=== PATIENT | female | born 1965 | race African-American/Black ===

== ENCOUNTER 2018-12-29 09:33 | Emergency (ER) | payer BC, OTHER ==
--- NOTE | 2018-12-29 09:37 | PDOC ---
History of Present Illness - General Chief Complaint: Lightheaded Stated Complaint: DIZZY, NAUSEATED Time Seen by Provider: 12/29/18 09:36 History Source: Patient Exam Limitations: No Limitations - History of Present Illness Initial Comments: 12/29/18 09:37 53 YOF with h/o hypothyroidism, HTN presenting with episodes of generalized weakness, dizziness, nausea, flushing and difficulty catching her breath intermittently since 12AM last night. she was in usual state of health, ate a dinner of chicken and peas. she went to bed but woke up at 12AM feeling flushed and hot, and inability to catch her breath and +palpitations. she went back to sleep but woke up several times in the night with continued feelings of nausea, dizziness/lightheadedness. she placed a cool wet towel on her chest with improvement. she also made a normal BM after one of the episodes, with some improvement. last episode of symptoms was at 9AM this morning, also experiencing NBNB emesis and nausea, where she threw up her food from last night. currently she states she just feels "weak all over." she also endorses LLE muscle and calf pain, described as aches; no alleviating or exacerbating factors went to PMD yesterday, seen and evaluated and given reassurance. Denies fever, chills, chest pain, SOB, cough or congestion, diarrhea or constipation, abdominal pain, bladder and bowel problems, leg swelling, No sick contacts or travel. no h/o immobilization or surgeries or OCP use. No new changes in medications. No suspicious food intake Allergies: shrimp Past Medical History: as documented in EMR/HPI Social history: Lives with family. No tobacco, ETOH or drug use. Surgical history: C sections Meds: as documented in EMR Family history: no h/o sudden PA or CAD, no h/o DVT/PE PMD: Dr Estrada 12/29/18 09:38 12/29/18 09:52 12/29/18 09:57 Past History - Past Medical History Allergies/Adverse Reactions: Allergies Allergy/AdvReac Type Severity Reaction Status Date / Time shrimp Allergy Intermediate Difficulty Verified 12/29/18 09:37 Breathing Home Medications: Ambulatory Orders Ergocalciferol (Vitamin D2) [Vitamin D2] 50 mcg PO SA 12/29/18 Hydrochlorothiazide [Hctz -] 12.5 mg PO DAILY 12/29/18 Metoprolol Tartrate 100 mg PO DAILY 12/29/18 Potassium Chloride [K-Dur -] 10 meq PO DAILY 12/29/18 Review of Systems - Review of Systems Able to Perform ROS?: Yes Comments:: 12/29/18 09:38 Review of systems Constitutional: no fevers or chills. +general weakness HEENT: +dizziness, no headache. No congestion. No visual/hearing disturbances. no sore throat CVS: no cp or syncope. +palpitations. Resp: no sob. No cough. Gastrointestinal: no abdominal pain, + nausea +vomiting. no diarrhea or constipation. Genitourinary: no urinary sx, hematuria. no urgency or frequency. MUSCULOSKELETAL: No joint pain and swelling. No neck or back pain. +calf and muscle pain in LLE. SKIN: no redness or skin changes, no discharge, no rash. No wounds. Hematologic: no easy bruising/bleeding. NEUROLOGIC: No headache, dizziness, LOC or altered mental status. No focal weakness, numbness or tingling. Psych: no anxiety or depression Allergic/Immunologic: shrimp allergies All other systems reviewed and negative, or as documented in HPI. 12/29/18 09:56 12/29/18 09:57 *Physical Exam - Physical Exam Comments: 12/29/18 09:38 General: Well appearing, awake and alert, NAD. HEENT: NCAT, PERRL, EOMI, clear conjunctiva, anicteric, moist mucus membranes, clear oropharynx, no oral lesions.. Neck: neck supple, FROM Resp: CTAB, normal and even respirations, no respiratory distress CVS: RRR, no murmurs, 2+ peripheral pulses throughout, no peripheral edema Abdomen: soft, NTND, no rebound or guarding. No CVAT. Back: nontender, normal inspection and ROM MSK: no edema, CARDENAS x4, ROM intact. No clubbing or cyanosis. normal bulk and tone. Extremities: +left thigh and calf tenderness Neuro: alert, oriented appropriately; no focal neurologic deficits, 5/5 prox and distal strength all throughout. SILT in all extrem. speech clear. gait stable. no ataxia. Psych: Calm and cooperative Skin: warm and well perfused, cap refill <2 sec, normal color 12/29/18 09:58 Heart Score/ECG Review #1 ECG reviewed & interpreted by me at: 10:45 General ECG Interpretation: Sinus Rhythm, Normal Rate, Normal Intervals 12/29/18 11:18 EKG normal sinus rhythm at 77 bpm, no interval abnormalities, narrow QRS, ST and T wave segments and morphology normal. Nonspecific T wave flattening in III only 12/29/18 11:18 ED Treatment Course - LABORATORY CBC & Chemistry Diagram: 12/29/18 10:10 12/29/18 10:10 Medical Decision Making - Medical Decision Making 12/29/18 09:59 See HPI for details. Prior notes reviewed, including admissions, discharges and consultations. Vital signs reviewed, +tachy Vital Signs Temp Pulse Resp BP Pulse Ox 99.1 F 104 H 20 138/85 100 12/29/18 09:42 12/29/18 09:42 12/29/18 09:42 12/29/18 09:42 12/29/18 09:42 DDx : ACS, coronary vasospasm, NSTEMI, arrhythmia, unstable angina, PE, dissection, anemia, electrolyte/metabolic derangements, GERD, PUD, esophageal spasm, anxiety. DVT. leg spasms, RLS. asymptomatic currently, with atypical sx and nonspecificity laboratory results and imaging reviewed, basic labs and lytes wnl, normal H/H. UA_wbc 5-10, trace leuk esterase, f/u urine culture as pt denies any urinary sx such as AP, dysuria, urgency or hematuria. CXR_unremarkable, no acute chest pathology Cardiac panel_neg trop, x2 reassuring, doubt cardiac EKG normal sinus rhythm at 77 bpm, no interval abnormalities, narrow QRS, ST and T wave segments and morphology normal. Nonspecific T wave flattening in III only EKG unchanged on repeat at 3 hours duplex neg for DVT in LLE. dimer is positive, age adjusted >700, so CTA to check for PE ED course -interventions: none no events, comfortable, feeling better no episodes of vomiting no cp or sob. has been comfortable during ED stay x 6 hours. repeat VS wnl, no longer tachy, no respiratory distress CTA neg for PE< incidental upper lung opacity, f/u chest ct indicated. incidental adrenal nodule seen, hiatal hernia. results provided and to be followed up Pt to be discharged in stable condition. Patient and family made aware of clinical impression, treatment recommendations and disposition plan, return precautions discussed (including but not limited to new or persistent/worsening symptoms, pain, fevers, or signs of infection, chest pain, respiratory distress , inability to tolerate oral intake, dehydration, syncope, or neurologic changes ). Follow up with PMD and/or specialist as recommended, follow up information provided, take medications as instructed for duration of time. continue with supportive care, avoid triggers and precipitants. All questions answered to patient's satisfaction and expressed understanding and comfort with this. At the time of discharge, the patient is alert, clinically improved, tolerating po and verbalizes understanding of instructions, satisfied with the care received and felt comfortable with the plan. Patient does not suffer from an acute life- threatening medical condition at this time and is safe for outpatient follow- up. 12/29/18 11:17 12/29/18 11:18 12/29/18 15:38 12/29/18 15:40 *DC/Admit/Observation/Transfer Diagnosis at time of Disposition: Dizziness, Nausea - Discharge Dispostion Disposition: HOME Condition at time of disposition: Good Decision to Admit order: No - Referrals - Patient Instructions Printed Discharge Instructions: DI for Nausea -- Adult, DI for Dizziness- Nonvertigo Additional Instructions: 1) Please follow-up with your primary care doctor in the next 1-[address] Estrada. Please call tomorrow for for any urgent issues. 2) You were given a copy of the tests performed today. Please bring the results with you and review them with your primary care doctor. Your laboratory / imaging results were normal, there is incidental pulmonary opacity that needs repeat chest imaging. there is no blood clots seen in lungs or legs your blood work was all within normal limits, no evidence of heart problems or attacks 3) If you have any worsening of symptoms or any other concerns please return to the ED immediately. Return if worsening symptoms including fevers, headache, vomiting, visual or hearing disturbances, abdominal pain, chest pain, shortness of breath, syncope, dehydration, inability to take things by mouth/vomiting, altered mental status, or worsening concerning symptoms. Stay well hydrated and rest adequately. avoid any stressors. Make an appointment. If you cannot follow-up with your primary care doctor please return to the ED - Post Discharge Activity Forms/Work/School Notes: Back to Work
[2018-12-29 09:45] VITALS: TEMP 99.1; BMI 28.7
[2018-12-29 10:34] LABS: BASO % 0.8 % (0-2.0); EOS % 0.7 % (0-4.5); HEMATOCRIT 43.1 % (32.4-45.2); LYMPH % 39.3 % (8-40); MCH 27.6 pg (25.7-33.7); MCHC 32.6 g/dl (32.0-36.0); MEAN CELL VOLUME 84.7 fl (80-96); MEAN PLT VOLUME 9.1 fl (7.5-11.1); MONO % 6.3 % (3.8-10.2); NEUT % 52.9 % (42.8-82.8); PLATELET COUNT 308 K/MM3 (134-434); RBC 5.08 M/mm3 (3.60-5.2); RDW 12.8 % (11.6-15.6); WHITE BLOOD COUNT 5.6 K/mm3 (4.0-10.8)
[2018-12-29 10:42] LABS: ALBUMIN 4.5 g/dl (3.4-5.0); CALCIUM 9.6 mg/dl (8.5-10); CREATININE 0.8 mg/dl (0.55-1.3); POTASSIUM 3.5 mmol/L (3.5-5.1); TOT PROT 7.7 g/dl (6.4-8.2)
[2018-12-29 11:59] LABS: EPITHELIAL CELLS MODERATE /hpf
--- NOTE | 2018-12-29 12:20 | EKG ---
Test Reason : Blood Pressure : / mmHG Vent. Rate : 077 BPM Atrial Rate : 077 BPM P-R Int : 160 ms QRS Dur : 088 ms QT Int : 394 ms P-R-T Axes : 068 042 046 degrees QTc Int : 445 ms NORMAL SINUS RHYTHM POSSIBLE LEFT ATRIAL ENLARGEMENT BORDERLINE ECG NO PREVIOUS ECGS AVAILABLE Confirmed by MIKY HUNT, EMILIE ([id number]) on 12/29/2018 12:19:41 PM Referred By: NIKA EVANGELISTA Confirmed By:EMILIE BOLAÑOS MD
[2018-12-29] MEDS ORDERED: SODIUM CHLORIDE 0.9% 500 ML INFUS.BAG IV ONE (13:24)
[2018-12-29 15:11] VITALS: BP 142/89; PULSE 81
--- NOTE | 2018-12-29 15:13 | EKG ---
Test Reason : Blood Pressure : / mmHG Vent. Rate : 085 BPM Atrial Rate : 085 BPM P-R Int : 152 ms QRS Dur : 090 ms QT Int : 390 ms P-R-T Axes : 075 053 059 degrees QTc Int : 464 ms NORMAL SINUS RHYTHM POSSIBLE LEFT ATRIAL ENLARGEMENT BORDERLINE ECG WHEN COMPARED WITH ECG OF 29-DEC-2018 10:46, NO SIGNIFICANT CHANGE WAS FOUND Confirmed by MIKY HUNT, EMILIE ([id number]) on 12/29/2018 3:13:04 PM Referred By: KRISS EVANGELISTA Confirmed By:EMILIE BOLAÑOS MD
== END 2018-12-29 15:57 | disposition home or self-care (01) ==
LOC: FER 09:33
PROC: 3E0337Z Introduction of Electrolytic and Water Balance Substance into Peripheral Vein, Percutaneous Approach (ICD-10-PCS; principal; 2018-12-29)
DX: R42 Dizziness and giddiness (principal); R11.0 Nausea; I10 Essential (primary) hypertension; E03.9 Hypothyroidism, unspecified
CPT/HCPCS: 36415; 71046-TC-FY; 71275-TC; 80053; 81003; 81015; 82550; 83735; 84443; 84484; 85025; 85379; 93005; 93971-TC; 99285-25